=== PATIENT | male | born 1985 | race Caucasian/White ===

== ENCOUNTER 2023-04-02 16:09 | Emergency (ER) | payer MEDICAID ==
[~2023-04-02] VITALS: Ht 165.1 cm; Wt 90.7 kg
[2023-04-02 16:18] VITALS: BP_SYST 142; PULSE 66; RESP 18; TEMP 98.3; O2SAT 98
[2023-04-02] MEDS ORDERED: KETOROLAC TROMETHAMINE 60 MG/2 ML VIAL IM ONE (19:45)
[2023-04-02] MEDS ORDERED: DICL75TA5 PO (21:04)
[2023-04-02] MEDS ORDERED: DICL20GE TP (21:04)
[2023-04-02 21:23] VITALS: BP_SYST 145; PULSE 67; RESP 16; TEMP 98.4; O2SAT 98
== END 2023-04-02 21:25 | disposition home or self-care (01) ==
LOC: SED 16:09
DX: S39.012A Strain of muscle, fascia and tendon of lower back, initial encounter (principal); Z79.899 Other long term (current) drug therapy; X58.XXXA Exposure to other specified factors, initial encounter; Y93.89 Activity, other specified; Y92.89 Other specified places as the place of occurrence of the external cause; Y99.8 Other external cause status
CPT/HCPCS: 99283; 72100; 96372; J1885